=== PATIENT | female | born 1965 | race Caucasian/White ===

== ENCOUNTER 2024-08-13 18:49 | Emergency (ER) | payer OTHER, SELFPAY ==
[2024-08-13 19:12] VITALS: BP 133/77; PULSE 88; RESP 18; TEMP 37.1; O2SAT 97
--- NOTE | 2024-08-13 19:18 | ED_ITS ---
HPI - Skin/Abscess/Foreign Bdy General Chief complaint: Skin/Abscess/Foreign Body Stated complaint: spider bite Time Seen by Provider: 08/13/24 19:02 Source: patient Mode of arrival: ambulatory Limitations: no limitations History of Present Illness HPI narrative: Patient is a 58-year-old female who presents with insect bite to right medial thigh. States she woke up this morning with large blister and large area of redness and warmth. Over the day the blister has started to weep but has not popped. Denies any fever, chills, nausea, vomiting, diarrhea, red streaking up leg Related Data Home Medications ?Medication ?Instructions ?Recorded ?Confirmed ?Last Taken ?Type drospirenone (contraceptive) 4 mg 08/13/24 Unknown History (28) tablet (Slynd) Allergies Allergy/AdvReac Type Severity Reaction Status Date / Time No Known Allergies Allergy Verified 08/13/24 19:11 Review of Systems 2 Review of Systems: All systems reviewed & are unremarkable except as noted in HPI and below Constitutional: Constitutional: Denies body ache(s), Denies chills, Denies fatigue, Denies fever(s), Denies headache(s), Denies malaise and Denies weakness Eyes: Eyes: Denies blurry vision, Denies irritation and Denies loss of vision ENT: Denies otalgia, Denies headache(s), Denies nasal discharge, Denies sinus pain and Denies sore throat Cardiovascular: Cardiovascular: Denies chest pain, Denies irregular heart rhythm and Denies dyspnea Respiratory: Respiratory: Denies dyspnea Gastrointestinal: Gastrointestinal: Denies abdominal pain, Denies melena, Denies hematochezia, Denies diarrhea, Denies nausea and Denies vomiting Musculoskeletal: Musculoskeletal: Denies back pain, Denies myalgias and Denies arthralgias Integumentary/Breasts: Skin/Breast: Denies pruritus, Reports erythema, Denies rash, Reports skin swelling and Reports wounds Neurologic: Denies headache(s), Denies loss of vision and Denies weakness Psychiatric: Psychiatric: Reports no additional psychiatric complaints Endocrine: Endocrine: Denies fatigue PMFSH Comments At time of signature, agree with nursing past medical, surgical, social and family history. There is no relevant family history pertinent to the presenting complaint. Exam 2 Const: General: cooperative, healthy appearing, comfortable, no acute distress and well nourished Nutritional Appearance: well nourished O rientation/consciousness: patient oriented x3 Limitations: no limitations HENMT: Head: normal to inspection, normocephalic and atraumatic Ears: h earing grossly normal bilaterally and external ears normal Face/Nose/Sinus: N ormal external nose present, normal facial exam and face symmetric Face and sinus: normal facial exam and face symmetric Mouth: Yes lip normal Eyes: General: appearance normal, both eyes and all related structures A lignment and Position: alignment normal and position normal Periorbital: p eriorbital findings normal Eyelids: eyelids normal Pupils: Equal, round and reactive pupils present EOM: EOMs intact bilaterally Neck: Neck: normal visual inspection, full ROM and supple Chest: Chest palpation & inspection: normal inspection of the chest Resp: Effort & Inspection: normal respiratory effort and able to speak in complete sentences Auscultation: clear to auscultation bilaterally Cardio: Rate: regular rate Rhythm: regular rhythm Heart sounds: S1 normal heart sound present and S2 normal heart sound present GI: Inspection: normal to inspection Skin: General skin exam: normal color Full body images: 1. Vesicle 1.5 cm x 2 cm in the center of redness 7 x 7 cm. Warmth and erythema, mild induration Neuro: General: patient oriented x3 and moves all extremities Cranial nerves: Yes Equal, round and reactive pupils present Speech: normal speech Gait exam (Neuro): Normal gait present Extrem: General: normal to inspection, full ROM and no edema Psych: Appearance: grossly normal and well kempt Mental Status: mental status grossly normal Speech and movement: Normal speech and movement present Affect: normal affect Attitude: cooperative Thought process: Normal thought process present Course Course Emergency Course: Patient is aware of diagnosis, understands and agrees to treatment plan. Anticipatory guidance given. Patient agrees to follow-up as directed and is aware of reasons to seek care at the emergency department. Portions of this record may have been created with voice recognition software Level of Care: Express Care Visit Vital Signs Vital signs: Reviewed MDM - Skin/Abscess/Foreign Bdy MDM Narrative Medical decision making narrative: Pt well hydrated appearing, in no respiratory distress, hemodynamically stable. Recommend supportive care. The patient is stable at time of discharge the clinical impression was discussed and the patient was given the opportunity to ask questions, which were addressed as completely as possible given the information available at present. Anticipatory guidance and return to care precautions were discussed and the importance of primary care follow-up was stressed and encouraged. The patient voiced understanding of the plan, indications to return, and the need for follow-up. Exam findings show no acute concerns or changes Patient is appropriate for outpatient treatment and follow-up. Differential Diagnosis Differential diagnosis: Likely abscess of skin or subcutaneous tissue, allergic reaction to drug, cellulitis and insect bites Discharge Plan Discharge Clinical Impression: Insect bites, Cellulitis Patient Disposition: Home Condition: Stable Instructions: Cellulitis (ED) Additional Instructions: Please follow up with your Primary Care Doctor within 48-72 hours - call for an appointment. Rest and elevate affected area; apply moist heat 3-4 times daily for 10-15 minutes. Clean with soap and water only; Avoid using alcohol and peroxide. Elevate the affected area if possible Please take Antibiotics as directed. For pain, you may take: Tylenol 650-1000mg by mouth every 4-6 hours. Do not exceed 4000mg in 24 hours. Advil (Ibuprofen) 600 mg by mouth every 6 hours. Do not exceed 2400mg in 24 hours. 8 AM: Tylenol 11 AM: Ibuprofen 2 PM: Tylenol 5 PM: Ibuprofen 8 PM: Tylenol 11 PM: Ibuprofen 2 AM: Tylenol 5 AM: Ibuprofen If you experience any worsening redness, swelling, streaking (red lines), fever or chills please go to the ER Patient Language: Estonian Prescriptions: New clindamycin HCl 300 mg capsule 300 mg PO Q8H 10 Days Qty: 30 0RF sulfamethoxazole-trimethoprim 800-160 mg tablet 1 tablet PO Q12H 5 Days Qty: 10 0RF mupirocin 2 % ointment 1 applic topical BID Qty: 15 0RF No Action Slynd 4 mg (28) tablet Follow-up/Referrals: Pedro,Anusha Sparks [Other] - 3 Days Time of Disposition: 19:21
== END 2024-08-13 19:29 | disposition home or self-care (01) ==
PROVIDERS: Emergency Provider Nurse Practitioner Family
DX: S70.361A Insect bite (nonvenomous), right thigh, initial encounter (principal); L03.115 Cellulitis of right lower limb; W57.XXXA Bitten or stung by nonvenomous insect and other nonvenomous arthropods, initial encounter
CPT/HCPCS: 99203; G0463